=== PATIENT | female | born 1955 | race Two or more races ===

== ENCOUNTER 2023-09-26 18:08 | Emergency (ER) | payer OTHER ==
[~2023-09-26] VITALS: Ht 157.5 cm; Wt 68.5 kg
[2023-09-26] MEDS ORDERED: SYNTHROID100 MCG (18:12)
[2023-09-26 21:39] LABS: HEMATOCRIT 37.6 % (36.0-45.00); HEMOGLOBIN 12.6 g/dL (12.0-15.00); MEAN CELL VOLUME 85.9 fL (80.00-100.00); MEAN CORPUSCULAR HEMOGLOBIN 28.7 pg (27.00-32.0); MEAN CORPUSCULAR HGB CONC 33.4 g/dl (32.0-36.0); PLATELET COUNT 228 K/uL (150-450); RED BLOOD COUNT 4.38 M/uL (4.00-6.00)
[2023-09-26 21:56] LABS: PH,URINE 5.5 (5.0-8.0); URINE APPEARANCE Clear; URINE BILIRRUBIN Negative (NEGATIVE); URINE BLOOD Negative; URINE COLOR Yellow; URINE GLUCOSE Negative (NEGATIVE); URINE LEUKOCYTE Moderate; URINE NITRATE Negative; URINE PROTEIN Negative (NEGATIVE); URINE UROBILINOGEN 0.2 E.U./dl
[2023-09-26 21:59] LABS: URINE BACTERIA 864.2 uL (0.0-1933); URINE EPITHELIAL CELLS 29.8 uL (0.0-38.8); URINE RBC 3.4 uL (0.0-20.8); URINE WBC 59.4 uL (0.0-23.2)
[2023-09-26 22:02] LABS: CALCIUM 8.9 mg/dL (8.5-10.1); CREATININE SERUM 0.9 mg/dL (0.55-1.02); GFR 62.45; POTASSIUM 3.63 mEq/L (3.5-5.1)
== END 2023-09-26 22:59 | disposition home or self-care (01) ==
LOC: ER 18:08
PROVIDERS: General Practice
DX: N39.0 Urinary tract infection, site not specified (principal); M54.89 Other dorsalgia; Z20.822 Contact with and (suspected) exposure to COVID-19
CPT/HCPCS: 36415; 96372; 99282; J0696; J1885

== ENCOUNTER 2024-01-22 10:55 | Outpatient (CLI) | payer OTHER ==
[~2024-01-22 10:55] MED LIST: SYNTHROID100 MCG
== END 2024-01-22 10:57 | disposition home or self-care (01) ==
LOC: SONOGRAMA 10:55
PROVIDERS: ATTEND Pathology Anatomic Pathology & Clinical Pathology
DX: D34 Benign neoplasm of thyroid gland (principal); E07.89 Other specified disorders of thyroid; E04.2 Nontoxic multinodular goiter

== ENCOUNTER 2024-01-29 11:06 | Outpatient (CLI) | payer OTHER ==
[2024-01-29 12:47] LABS: HEMATOCRIT 36.7 % (36.0-45.00); HEMOGLOBIN 12.4 g/dL (12.0-15.00); MEAN CELL VOLUME 85.8 fL (80.00-100.00); MEAN CORPUSCULAR HEMOGLOBIN 28.9 pg (27.00-32.0); MEAN CORPUSCULAR HGB CONC 33.7 g/dl (32.0-36.0); PLATELET COUNT 189 K/uL (150-450); RED BLOOD COUNT 4.28 M/uL (4.00-6.00); RED CELL DISTRIBUTION WIDTH 14.2 % (11.5-14.5)
[2024-01-29 12:56] LABS: PH,URINE 5.5 (5.0-8.0); URINE APPEARANCE Cloudy; URINE BILIRRUBIN Negative (NEGATIVE); URINE BLOOD Negative; URINE COLOR Yellow; URINE GLUCOSE Negative (NEGATIVE); URINE LEUKOCYTE Large; URINE NITRATE Negative; URINE PROTEIN Negative (NEGATIVE); URINE UROBILINOGEN 0.2 E.U./dl
[2024-01-29 13:07] LABS: URINE BACTERIA 3593.4 uL (0.0-1933); URINE EPITHELIAL CELLS 146.1 uL (0.0-38.8); URINE RBC 6.3 uL (0.0-20.8); URINE WBC 129.5 uL (0.0-23.2)
[2024-01-29 13:24] LABS: INR 0.96; PARTIAL THROMBOPLASTIN TIME 31.6 SECONDS (22.0-34.0)
[2024-01-29 13:34] LABS: PROTHROMBIN TIME 10.1 SECONDS (9.0-11.5)
[2024-01-29 13:44] LABS: BILIRUBIN TOTAL 0.35 mg/dL (0.3-1.2); CALCIUM 9.1 mg/dL (8.5-10.1); CREATININE SERUM 0.64 mg/dL (0.55-1.02); GFR 92.56; GLOBULINA 4.4 G/DL (2.4-3.5); POTASSIUM 4.18 mEq/L (3.5-5.1); TOTAL PROTEIN 7.4 gm/dL (6.4-8.2)
== END 2024-01-29 11:07 | disposition home or self-care (01) ==
LOC: LAB 11:06
PROVIDERS: ATTEND Colon & Rectal Surgery
DX: K64.2 Third degree hemorrhoids (principal); K57.30 Diverticulosis of large intestine without perforation or abscess without bleeding

== ENCOUNTER 2024-09-10 06:49 | Inpatient (IN) | payer OTHER ==
[2024-09-04 11:43] LABS: RH POSITIVE
[~2024-09-10] VITALS: Ht 157.5 cm; Wt 68.9 kg
[2024-09-10] MEDS ORDERED: CEFAZOLIN SODIUM 1,000 MG VIAL IV ONE (11:15)
[2024-09-10] MEDS ORDERED: SODIUM CHLORIDE 0.45 % 1,000 ML IV SCH (11:30)
[2024-09-10] MEDS ORDERED: KETOROLAC TROMETHAMINE 60 MG VIAL IM ONE (11:30)
[2024-09-10] MEDS ORDERED: LIDOCAINE HCL 1%/EPINEPHRINE 20ML VIAL IJ ONE (11:30)
[2024-09-10] MEDS ORDERED: POVIDONE-IODINE 118 ML BOTT TOP ONE (11:30)
[2024-09-10] MEDS ORDERED: TRANEXAMIC ACID 100MG/1ML (1000MG) AMPUL IV ONE ×2 (11:30)
[2024-09-10] MEDS ORDERED: ONDANSETRON HCL 2 MG/ML VIAL IV PRN (11:30)
[2024-09-10] MEDS ORDERED: ACETAMINOPHEN 500 MG GEL..CAP PO SCH (12:00)
[2024-09-10] MEDS ORDERED: MEPERIDINE HCL 25 MG/ML AMPUL IV ONE (15:50)
[2024-09-10] MEDS ORDERED: GABAPENTIN 300 MG CAPSULE PO SCH (17:00)
[2024-09-10] MEDS ORDERED: FAMOtidine 20 MG TABLET PO SCH (17:00)
[2024-09-10] MEDS ORDERED: CEFAZOLIN SODIUM 1,000 MG VIAL IV SCH (17:00)
[2024-09-11] VITALS: BP 128/56; O2SAT 96
[2024-09-11] MEDS ORDERED: LEVOTHYROXINE SODIUM 100 MCG TABLET PO SCH (06:00)
[2024-09-11] MEDS ORDERED: APIXABAN 2.5 MG TABLET PO SCH (09:00)
[2024-09-11] MEDS ORDERED: SENNOSIDES 1 TAB TABLET PO SCH (09:00)
[2024-09-11 09:03] LABS: HEMATOCRIT 31.7 % (36.0-45.00); HEMOGLOBIN 10.7 g/dL (12.0-15.00); MEAN CELL VOLUME 85.9 fL (80.00-100.00); MEAN CORPUSCULAR HEMOGLOBIN 28.9 pg (27.00-32.0); MEAN CORPUSCULAR HGB CONC 33.6 g/dl (32.0-36.0); PLATELET COUNT 171 K/uL (150-450); RED BLOOD COUNT 3.69 M/uL (4.00-6.00); RED CELL DISTRIBUTION WIDTH 14.9 % (11.5-14.5)
[2024-09-11 09:07] VITALS: BP 101/53; O2SAT 96
[2024-09-11] MEDS ORDERED: CEFADROXIL500 MG PO (09:18)
[2024-09-11] MEDS ORDERED: GABAPENTIN ER300 MG PO (09:18)
[2024-09-11] MEDS ORDERED: ELIQUIS2.5 MG PO (09:18)
[2024-09-11] MEDS ORDERED: ACETAMINOPHEN500 M2 PO (09:18)
[2024-09-11] MEDS ORDERED: KETOROLAC TROMETHAMINE 60 MG VIAL IM NR (12:30)
[2024-09-11 16:00] VITALS: BP 99/59; O2SAT 97
[2024-09-12 06:10] LABS: HEMATOCRIT 30.7 % (36.0-45.00); HEMOGLOBIN 10.2 g/dL (12.0-15.00); MEAN CORPUSCULAR HEMOGLOBIN 28.6 pg (27.00-32.0); MEAN CORPUSCULAR HGB CONC 33.3 g/dl (32.0-36.0); PLATELET COUNT 152 K/uL (150-450); RED BLOOD COUNT 3.57 M/uL (4.00-6.00); RED CELL DISTRIBUTION WIDTH 14.5 % (11.5-14.5)
[2024-09-12 07:09] VITALS: BP 121/62; O2SAT 95
[2024-09-12 08:24] VITALS: BP 100/61; O2SAT 94
[2024-09-12] MEDS ORDERED: IRON FUM,PS/FOLIC ACID/VITC/B3 1 CAP CAPSULE PO SCH (09:00)
[2024-09-12] MEDS ORDERED: KETOROLAC TROMETHAMINE 60 MG VIAL IM STA (09:47)
[2024-09-12 16:00] VITALS: BP 107/58; O2SAT 95
== END 2024-09-12 18:04 | DRG 470 ==
LOC: O/R 06:49 → SURH 06:49
PROVIDERS: ADMIT Orthopaedic Surgery; ATTEND Orthopaedic Surgery
PROC: 0MNN0ZZ Release Right Knee Bursa and Ligament, Open Approach (ICD-10-PCS; 2024-09-10)
PROC: 0SRC0J9 Replacement of Right Knee Joint with Synthetic Substitute, Cemented, Open Approach (ICD-10-PCS; principal; 2024-09-10 13:30)
DX: M17.11 Unilateral primary osteoarthritis, right knee (principal); M22.11 Recurrent subluxation of patella, right knee